=== PATIENT | male | born 1985 | race Caucasian/White ===

== ENCOUNTER 2019-06-07 14:50 | Emergency (ER) | payer OTHER ==
[2019-06-07 16:22] LABS: ADD MAN DIFF? NO
[2019-06-07] MEDS: FENTAnyl 50 MCG/ML VIAL IV ×4 (16:23→20:47)
[2019-06-07 16:24] LABS: BASOPHIL # 0.1 10^3/ul (0.0-0.1); BASOPHILS % 0.8 % (0.0-2.0); EOSINOPHILS # 0.1 10^3/ul (0.0-0.5); EOSINOPHILS % 1.4 % (0.0-7.0); HEMATOCRIT 47.5 % (42.0-52.0); HEMOGLOBIN 16.5 g/dl (14.0-18.0); LYMPHOCYTES # 1.3 10^3/ul (0.8-2.9); LYMPHOCYTES % 16.5 % (15.0-51.0); MEAN CORPUSCULAR HEMOGLOBIN 33.1 pg (29.0-33.0); MEAN CORPUSCULAR HGB CONC 34.7 g/dl (32.0-37.0); MEAN CORPUSCULAR VOLUME 95.2 fl (82.0-101.0); MEAN PLATELET VOLUME 11.1 fl (7.4-10.4); MONOCYTE # 0.5 10^3/ul (0.3-0.9); MONOCYTES % 6.5 % (0.0-11.0); NEUTROPHILS % 74.4 % (39.0-77.0); PLATELET COUNT 190 10^3/UL (140-415); RED BLOOD COUNT 4.99 10^6/ul (4.70-6.10); RED CELL DISTRIBUTION WIDTH 12.8 % (11.5-14.5)
[2019-06-07 16:30] LABS: ANION GAP 10 (5-13); BLOOD UREA NITROGEN 10 mg/dl (7-20); CALCIUM 9.5 mg/dl (8.4-10.2); CARBON DIOXIDE 29 mmol/L (21-31); CHLORIDE 103 mmol/L (97-110); CREATININE 0.88 mg/dl (0.61-1.24); Estimated GFR > 60 mL/min (>60); GLUCOSE 98 mg/dl (70-220); POTASSIUM 4.2 mmol/L (3.5-5.1); SODIUM 142 mmol/L (135-144)
[2019-06-07 16:42] LABS: TROPONIN-I < 0.012 ng/ml (0.000-0.120)
[2019-06-07] MEDS ORDERED: MIDAZOLAM 1 MG/ML 2 ML INJ (18:46)
[2019-06-07] MEDS: LIDOCAINE 1% (MPF) 5 ML VIAL (18:52)
[2019-06-07] MEDS ORDERED: LIDOCAINE 1% (MDV) 20 ML INJ (18:54)
[2019-06-07] MEDS: MIDAZOLAM 1 MG/ML 2 ML INJ IV ×2 (19:00→20:48)
[2019-06-07] MEDS: HYDROCODONE/APAP (5/325) TAB PO (19:50)
[2019-06-07] MEDS: KETOROLAC 30 MG INJ IV (19:50)
[2019-06-07] MEDS ORDERED: SOD CHLORIDE 0.9% 0 ML (23:47)
[2019-06-07] MEDS ORDERED: IOHEXOL 300MG/ML 150 ML BTL (23:47)
== END 2019-06-07 22:52 | disposition home or self-care (01) ==
LOC: E/R 14:50
DX: J93.83 Other pneumothorax (principal)
CPT/HCPCS: 32551; 71045; 71250; 75989; 80048; 84484; 85025; 93005; 96374; 99285-25

== ENCOUNTER 2019-06-07 23:25 | Inpatient (IN) | payer OTHER ==
[2019-06-07] MEDS: IOHEXOL 300MG/ML 150 ML BTL (23:50)
[2019-06-07] MEDS: morphine 4 MG/ML VIAL IV (23:50)
[2019-06-07] MEDS: SOD CHLORIDE 0.9% 100 ML (23:50)
[2019-06-08] MEDS: LIDOCAINE 1%/EPI (MDV) 50 ML INJ INJ (00:34)
[2019-06-08] MEDS: ONDANSETRON 4 MG INJ IV ×4 (00:34→20:06)
[2019-06-08 00:48] LABS: ADD MAN DIFF? NO
[2019-06-08 00:57] LABS: BASOPHIL # 0.1 10^3/ul (0.0-0.1); BASOPHILS % 0.5 % (0.0-2.0); EOSINOPHILS # 0.1 10^3/ul (0.0-0.5); EOSINOPHILS % 0.6 % (0.0-7.0); HEMATOCRIT 42.8 % (42.0-52.0); LYMPHOCYTES # 1.7 10^3/ul (0.8-2.9); MEAN CORPUSCULAR VOLUME 94.1 fl (82.0-101.0); MEAN PLATELET VOLUME 11.3 fl (7.4-10.4); MONOCYTE # 0.7 10^3/ul (0.3-0.9); MONOCYTES % 7.3 % (0.0-11.0); NEUTROPHIL # 7.3 10^3/ul (1.6-7.5); NEUTROPHILS % 74.4 % (39.0-77.0); PLATELET COUNT 192 10^3/UL (140-415); RED BLOOD COUNT 4.55 10^6/ul (4.70-6.10)
[2019-06-08 00:57] LABS: WHITE BLOOD COUNT 9.8 10^3/ul (4.8-10.8)
[2019-06-08] MEDS: KETAMINE (50 MG/ML) 10 ML VIAL IV (01:00)
[2019-06-08] MEDS: LIDOCAINE 1%/EPI 30 ML INJ INJ (01:54)
[2019-06-08] MEDS: ACETAMINOPHEN 325 MG TAB PO ×2 (03:35→10:43)
[2019-06-08] MEDS: METOCLOPRAMIDE 10 MG INJ IV ×4 (04:59→23:00)
[2019-06-08] MEDS: morphine 2 MG INJ IV ×3 (04:59→13:16)
[2019-06-08 08:33] LABS: ADD MAN DIFF? NO
[2019-06-08 08:43] LABS: WHITE BLOOD COUNT 11.2 10^3/ul (4.8-10.8)
[2019-06-08 08:43] LABS: BASOPHILS % 0.2 % (0.0-2.0); HEMATOCRIT 42.8 % (42.0-52.0); HEMOGLOBIN 14.8 g/dl (14.0-18.0); LYMPHOCYTES % 8.8 % (15.0-51.0); MEAN CORPUSCULAR HGB CONC 34.6 g/dl (32.0-37.0); MEAN CORPUSCULAR VOLUME 95.5 fl (82.0-101.0); MONOCYTE # 0.5 10^3/ul (0.3-0.9); MONOCYTES % 4.2 % (0.0-11.0); NEUTROPHIL # 9.7 10^3/ul (1.6-7.5); NEUTROPHILS % 86.4 % (39.0-77.0); PLATELET COUNT 172 10^3/UL (140-415); RED BLOOD COUNT 4.48 10^6/ul (4.70-6.10); RED CELL DISTRIBUTION WIDTH 12.8 % (11.5-14.5)
[2019-06-08] MEDS ORDERED: ACETAMINOPHEN 325 MG TAB PO (11:00)
[2019-06-08] MEDS: KETOROLAC 30 MG INJ IV ×4 (13:57→21:59)
[2019-06-08] MEDS ORDERED: HYDROmorphONE 1 MG/ML SYG IV (14:00)
[2019-06-08] MEDS: HYDROmorphONE 1 MG/ML SYG IV (20:13)
[2019-06-09] MEDS: ONDANSETRON 4 MG INJ IV ×3 (01:31→20:23)
[2019-06-09] MEDS: HYDROmorphONE 1 MG/ML SYG IV ×5 (01:32→23:34)
[2019-06-09] MEDS: KETOROLAC 30 MG INJ IV ×5 (02:04→20:24)
[2019-06-09] MEDS: METOCLOPRAMIDE 10 MG INJ IV ×5 (05:00→23:33)
[2019-06-09 05:34] LABS: ADD MAN DIFF? NO
[2019-06-09 05:55] LABS: HEMOGLOBIN A1C 4.8 % (0-5.9)
[2019-06-09 05:59] LABS: BASOPHILS % 0.3 % (0.0-2.0); EOSINOPHILS # 0.1 10^3/ul (0.0-0.5); EOSINOPHILS % 0.9 % (0.0-7.0); HEMATOCRIT 44.8 % (42.0-52.0); HEMOGLOBIN 15.2 g/dl (14.0-18.0); LYMPHOCYTES # 1.8 10^3/ul (0.8-2.9); MEAN CORPUSCULAR HEMOGLOBIN 32.6 pg (29.0-33.0); MEAN CORPUSCULAR HGB CONC 33.9 g/dl (32.0-37.0); MEAN CORPUSCULAR VOLUME 96.1 fl (82.0-101.0); MEAN PLATELET VOLUME 11.2 fl (7.4-10.4); MONOCYTE # 0.7 10^3/ul (0.3-0.9); MONOCYTES % 8.1 % (0.0-11.0); NEUTROPHIL # 6.3 10^3/ul (1.6-7.5); NEUTROPHILS % 70.4 % (39.0-77.0); PLATELET COUNT 169 10^3/UL (140-415); RED BLOOD COUNT 4.66 10^6/ul (4.70-6.10)
[2019-06-09 06:09] LABS: MAGNESIUM 2.1 mg/dl (1.7-2.5)
[2019-06-09 06:09] LABS: PHOSPHORUS 3.6 mg/dl (2.5-4.9)
[2019-06-09 06:26] LABS: ALANINE AMINOTRANSFERASE 27 IU/L (13-69); ALBUMIN 4.1 g/dl (3.3-4.9); ALBUMIN/GLOBULIN RATIO 1.28; ALKALINE PHOSPHATASE 84 IU/L (42-121); ANION GAP 6 (5-13); ASPARTATE AMINO TRANSFERASE 22 IU/L (15-46); BILIRUBIN,INDIRECT 1.1 mg/dl (0-1.1); BILIRUBIN,TOTAL 1.1 mg/dl (0.2-1.3); BLOOD UREA NITROGEN 14 mg/dl (7-20); CALCIUM 9.3 mg/dl (8.4-10.2); CARBON DIOXIDE 34 mmol/L (21-31); CHLORIDE 99 mmol/L (97-110); CREATININE 0.79 mg/dl (0.61-1.24); Estimated GFR > 60 mL/min (>60); GLUCOSE 101 mg/dl (70-220); POTASSIUM 4.6 mmol/L (3.5-5.1); SODIUM 139 mmol/L (135-144); TOTAL PROTEIN 7.3 g/dl (6.1-8.1)
[2019-06-09] MEDS: NICOTINE (14 MG/24 HR) PATCH TRANSDERM (08:44)
[2019-06-10] MEDS: ONDANSETRON 4 MG INJ IV ×3 (03:45→20:11)
[2019-06-10] MEDS: KETOROLAC 30 MG INJ IV ×2 (03:45→08:37)
[2019-06-10] MEDS: METOCLOPRAMIDE 10 MG INJ IV ×4 (05:28→23:16)
[2019-06-10] MEDS: HYDROmorphONE 1 MG/ML SYG IV ×5 (05:28→23:16)
[2019-06-10 05:49] LABS: ADD MAN DIFF? NO
[2019-06-10 05:57] LABS: BASOPHILS % 0.4 % (0.0-2.0); EOSINOPHILS # 0.2 10^3/ul (0.0-0.5); EOSINOPHILS % 2.5 % (0.0-7.0); HEMATOCRIT 42.4 % (42.0-52.0); HEMOGLOBIN 14.4 g/dl (14.0-18.0); LYMPHOCYTES # 1.8 10^3/ul (0.8-2.9); LYMPHOCYTES % 24.9 % (15.0-51.0); MEAN CORPUSCULAR HEMOGLOBIN 32.7 pg (29.0-33.0); MEAN CORPUSCULAR VOLUME 96.4 fl (82.0-101.0); MEAN PLATELET VOLUME 11.3 fl (7.4-10.4); MONOCYTE # 0.6 10^3/ul (0.3-0.9); MONOCYTES % 8.3 % (0.0-11.0); NEUTROPHIL # 4.5 10^3/ul (1.6-7.5); NEUTROPHILS % 63.6 % (39.0-77.0); PLATELET COUNT 165 10^3/UL (140-415); RED CELL DISTRIBUTION WIDTH 12.8 % (11.5-14.5)
[2019-06-10 05:57] LABS: WHITE BLOOD COUNT 7.1 10^3/ul (4.8-10.8)
[2019-06-10 06:20] LABS: ANION GAP 8 (5-13); BLOOD UREA NITROGEN 23 mg/dl (7-20); CALCIUM 9.1 mg/dl (8.4-10.2); CARBON DIOXIDE 35 mmol/L (21-31); CHLORIDE 98 mmol/L (97-110); CREATININE 0.95 mg/dl (0.61-1.24); Estimated GFR > 60 mL/min (>60); GLUCOSE 90 mg/dl (70-220); POTASSIUM 4.2 mmol/L (3.5-5.1); SODIUM 141 mmol/L (135-144)
[2019-06-10] MEDS: NICOTINE (14 MG/24 HR) PATCH TRANSDERM (08:39)
[2019-06-10 12:07] LABS: ALPHA 1 ANTITRYPSIN 150 mg/dL (83-199)
[2019-06-11] MEDS: ONDANSETRON 4 MG INJ IV ×5 (02:50→20:02)
[2019-06-11] MEDS: HYDROmorphONE 1 MG/ML SYG IV ×5 (02:51→20:02)
[2019-06-11 05:14] LABS: ADD MAN DIFF? NO
[2019-06-11 05:16] LABS: BASOPHIL # 0.1 10^3/ul (0.0-0.1); BASOPHILS % 0.6 % (0.0-2.0); EOSINOPHILS # 0.2 10^3/ul (0.0-0.5); EOSINOPHILS % 1.8 % (0.0-7.0); HEMATOCRIT 40.1 % (42.0-52.0); HEMOGLOBIN 13.8 g/dl (14.0-18.0); LYMPHOCYTES # 2.1 10^3/ul (0.8-2.9); MEAN CORPUSCULAR HGB CONC 34.4 g/dl (32.0-37.0); MEAN CORPUSCULAR VOLUME 95.9 fl (82.0-101.0); MEAN PLATELET VOLUME 11.1 fl (7.4-10.4); MONOCYTE # 0.6 10^3/ul (0.3-0.9); MONOCYTES % 7.6 % (0.0-11.0); NEUTROPHIL # 5.4 10^3/ul (1.6-7.5); NEUTROPHILS % 64.8 % (39.0-77.0); PLATELET COUNT 163 10^3/UL (140-415); RED BLOOD COUNT 4.18 10^6/ul (4.70-6.10); RED CELL DISTRIBUTION WIDTH 12.4 % (11.5-14.5)
[2019-06-11 05:16] LABS: WHITE BLOOD COUNT 8.3 10^3/ul (4.8-10.8)
[2019-06-11 05:42] LABS: ANION GAP 5 (5-13); BLOOD UREA NITROGEN 16 mg/dl (7-20); CALCIUM 9.1 mg/dl (8.4-10.2); CARBON DIOXIDE 34 mmol/L (21-31); CHLORIDE 101 mmol/L (97-110); CREATININE 0.96 mg/dl (0.61-1.24); Estimated GFR > 60 mL/min (>60); GLUCOSE 97 mg/dl (70-220); POTASSIUM 4.5 mmol/L (3.5-5.1); SODIUM 140 mmol/L (135-144)
[2019-06-11] MEDS: NICOTINE (14 MG/24 HR) PATCH TRANSDERM (08:32)
[2019-06-12] MEDS: ONDANSETRON 4 MG INJ IV ×5 (00:17→23:33)
[2019-06-12] MEDS: HYDROmorphONE 1 MG/ML SYG IV ×5 (00:18→23:38)
[2019-06-12 06:49] LABS: ADD MAN DIFF? NO
[2019-06-12 06:54] LABS: BASOPHIL # 0.1 10^3/ul (0.0-0.1); BASOPHILS % 0.5 % (0.0-2.0); EOSINOPHILS # 0.2 10^3/ul (0.0-0.5); EOSINOPHILS % 2.5 % (0.0-7.0); HEMATOCRIT 42.1 % (42.0-52.0); HEMOGLOBIN 14.6 g/dl (14.0-18.0); LYMPHOCYTES # 1.7 10^3/ul (0.8-2.9); LYMPHOCYTES % 17.3 % (15.0-51.0); MEAN CORPUSCULAR HGB CONC 34.7 g/dl (32.0-37.0); MEAN PLATELET VOLUME 10.7 fl (7.4-10.4); MONOCYTE # 0.8 10^3/ul (0.3-0.9); MONOCYTES % 8.6 % (0.0-11.0); NEUTROPHIL # 6.9 10^3/ul (1.6-7.5); NEUTROPHILS % 70.7 % (39.0-77.0); PLATELET COUNT 178 10^3/UL (140-415); RED BLOOD COUNT 4.43 10^6/ul (4.70-6.10); RED CELL DISTRIBUTION WIDTH 12.4 % (11.5-14.5)
[2019-06-12 06:54] LABS: WHITE BLOOD COUNT 9.7 10^3/ul (4.8-10.8)
[2019-06-12] MEDS: HYDROmorphONE 0.5 MG/0.5 ML SYG IV (07:03)
[2019-06-12 07:31] LABS: ANION GAP 6 (5-13); BLOOD UREA NITROGEN 12 mg/dl (7-20); CARBON DIOXIDE 30 mmol/L (21-31); CHLORIDE 101 mmol/L (97-110); CREATININE 0.89 mg/dl (0.61-1.24); Estimated GFR > 60 mL/min (>60); GLUCOSE 97 mg/dl (70-220); POTASSIUM 3.9 mmol/L (3.5-5.1); SODIUM 137 mmol/L (135-144)
[2019-06-12] MEDS: NICOTINE (14 MG/24 HR) PATCH TRANSDERM (09:00)
[2019-06-13] MEDS: ONDANSETRON 4 MG INJ IV ×2 (04:11→08:54)
[2019-06-13] MEDS: HYDROmorphONE 1 MG/ML SYG IV ×3 (04:11→12:37)
[2019-06-13 08:36] LABS: ANION GAP 6 (5-13); BLOOD UREA NITROGEN 14 mg/dl (7-20); CALCIUM 9.3 mg/dl (8.4-10.2); CARBON DIOXIDE 32 mmol/L (21-31); CHLORIDE 102 mmol/L (97-110); CREATININE 0.87 mg/dl (0.61-1.24); Estimated GFR > 60 mL/min (>60); GLUCOSE 84 mg/dl (70-220); SODIUM 140 mmol/L (135-144)
[2019-06-13] MEDS: NICOTINE (14 MG/24 HR) PATCH TRANSDERM (08:46)
[2019-06-13] MEDS: SENNA TAB PO (08:47)
[2019-06-13] MEDS: MAGNESIUM HYDROXIDE 30ML CUP PO (13:41)
[2019-06-13] MEDS: NA PHOSPHATE/BIPHOS 133 ML ENEMA PR (16:55)
== END 2019-06-13 18:33 | disposition home or self-care (01) | DRG 187 ==
LOC: TEL 06-11 23:42 → E/R 23:25 → ICU 06-08 03:08
PROVIDERS: Family Medicine
PROC: 0W9B30Z Drainage of Left Pleural Cavity with Drainage Device, Percutaneous Approach (ICD-10-PCS; principal; 2019-06-08)
DX: J94.2 Hemothorax (principal); J93.9 Pneumothorax, unspecified; F12.90 Cannabis use, unspecified, uncomplicated; F17.200 Nicotine dependence, unspecified, uncomplicated; F19.10 Other psychoactive substance abuse, uncomplicated
CPT/HCPCS: 71045; 71250; 71260; 80048; 80053; 82103; 83036; 83735; 84100; 84443; 85025; 86850; 86900; 86901; 87081; 94770; 96374; 97161; 99285-25